=== PATIENT | male | born 1960 | race Caucasian/White ===

== ENCOUNTER 2023-10-22 19:10 | Inpatient (IN) | payer BC, SELFPAY ==
[2023-10-22] VITALS (9 sets, daily range): BP systolic 111–155; BP diastolic 55–119; BMI 30.8; BMI 31.0
--- NOTE | 2023-10-22 12:59 | ED.GENMED ---
History of Present Illness
General
Chief Complaint: Abdominal Symptoms
Time Seen by Provider: 10/22/23 12:47
History of Present Illness
History of Present Illness:
Patient presents to the emergency department with vomiting diarrhea, abdominal pain, fevers. Symptoms started on Friday after eating chicken. Notes that Friday into Friday he had copious amounts of vomiting and watery diarrhea. Denies any
bloody stools. Since then he endorses severe fatigue. Today he had a fever to 104. He denies any persistent diarrhea or vomiting but notes very poor appetite. Endorses bilateral lower abdominal
Phy Exam
Physical Exam
Physical Exam:
GENERAL APPEARANCE: NAD, well developed/ well nourished
EYES lids/conjunctiva normal
EARS/NOSE/THROAT Mucous membranes tacky, uvula midline without oral pharyngeal erythema, exudate or swelling
HEAD/NECK normocephalic atraumatic, neck is supple.
RESPIRATORY respiratory effort normal, speaks in full sentences, no accessory muscle use. Lungs clear to auscultation without rhonchi, wheezes, rales
CARDIAC Regular rate and rhythm, no edema.
ABDOMINAL abdomen is soft and nondistended. There is tenderness to palpation in bilateral lower quadrants. There is no rebound or guard
MUSCLES/EXTREMITIES No abnormal range of motion, no swelling.
SKIN Warm, pink and dry. No rashes
NEUROLOGICAL Speech is clear and appropriate. Normal level of consciousness. 5/5 strength in all extremities.
PSYCH Normal mood and affect. Judgement/competence is appropriate
Course
Orders/Labs/Results
Orders:
Orders
10/22/23 12:57
0.9% Sodium Chloride 1000 ml [Nss] 1,000 ml IV BOLUS
Morphine Sulfate 4 mg IV NOW STA
10/22/23 12:58
CT Abd/Pel (IV only)-DH only Urgent
Comment:
Reason For Exam: febrile, lower abdominal pain
10/22/23 13:16
CR Chest - 2 Views Urgent
Comment:
Reason For Exam: cough, fever
10/22/23 13:22
Complete Blood Count/With Diff Urgent
Comprehensive Metabolic Panel Urgent
Lactic Acid Urgent
Lipase Urgent
Blood Culture Urgent
HARLEY Source: Blood/Venous
Specimen Description:
10/22/23 15:38
Azithromycin 500 mg/250 ml [Zithromax Infusion] 500 mg in 250 ml IV NOW
CefTRIAXone [Rocephin] 1,000 mg IV NOW STA
10/22/23 15:43
Acetaminophen [Tylenol] 650 mg PO NOW STA
10/22/23 15:51
Urinalysis Reflex To Culture Urgent
Date Specimen was Collected: 10/22/23
Time Specimen was Collected: 15:50
Urine Microscopic Reflex Cult Urgent
Urine Culture Urgent
HARLEY Source: U
Specimen Description:
Date Specimen was Collected: 10/22/23
Time Specimen was Collected: 15:50
10/22/23 17:08
MetroNIDAZOLE 500 MG/100 ML [Flagyl 500 mg] 100 ml IV NOW
Abnormal Lab Results
10/22/23 10/22/23
13:22 15:51
RBC 4.28 L 10^6/uL
(4.70-6.10)
Hct 38.2 L %
(39.0-52.0)
MCH 31.8 H pg
(27.0-31.0)
Abs Immat Gran (auto) 0.1 H 10^3/uL
(0-0.05)
Absolute Neuts (auto) 6.7 H 10^3/uL
(1.4-6.5)
Absolute Lymphs (auto) 0.5 L 10^3/uL
(1.2-3.4)
Absolute Monos (auto) 1.1 H 10^3/uL
(0.1-0.6)
Immature Gran % 1.5 H %
(0-0.5)
Neutrophils % 79.5 H %
(42.2-75.2)
Lymphocytes % 5.6 L %
(20.5-51.1)
Monocytes % 12.6 H %
(1.7-9.3)
Total Bilirubin 1.6 H mg/dl
(0.2-1.3)
AST 79 H U/L
(17-59)
ALT 105 H U/L
(0-50)
Alkaline Phosphatase 153 H U/L
(38-126)
Urine Ketones 1+ A
(Negative)
Ur Occult Blood Reflex 1+ A
(Negative)
Urine Bilirubin 1+ A
(Negative)
Urine RBC 3-6 A /HPF
(0-2)
Urine Bacteria (Reflex) Many A
(Negative)
10/22/23 13:22
10/22/23 13:22
Vital Signs
Initial and Last Documented VS:
Initial Vital Signs
Temp Pulse Resp BP Pulse Ox
98.4 F 95 18 135/74 96
10/22/23 10:46 10/22/23 10:46 10/22/23 10:46 10/22/23 10:46 10/22/23 10:46
Last Documented Vital Signs
Temp Pulse Resp BP Pulse Ox
103.8 F H 95 18 111/55 89
10/22/23 15:47 10/22/23 10:46 10/22/23 10:46 10/22/23 18:00 10/22/23 15:00
ED Attending Note
ED Attending Note
ED Attending Note:
Patient is nontoxic-appearing but does have bilateral lower abdominal tenderness with recent fevers and diarrheal illness. Plan for labs, CT to rule out intra-abdominal infection. Patient unable to provide stool sample but will send stool cultures
if he is able to
Perforated diverticulitis noted on CT scan with free air present. No abscess. Colorectal surgeon on-call Dr. Calles consulted
Dr. Calles saw patient, recommends admission, NPO/IVF he will reassess in the AM for possible operative plans.
-
Portions of this chart may have been created with voice recognition software.� Occasional wrong word or��sound alike� substitutions may have occurred due to the inherent limitations of voice recognition software.
Discharge Plan
Departure
Patient Disposition: Admit
Date of Disposition: 10/22/23
Time of Disposition: 18:09
Admit to: Med/Surg
Admit to doctor: hospitalist
Presentation/result/management discussed w/ accepting MD/DO: Hospitalist
Discharge Problem:
Diverticulitis of colon with perforation
Prescriptions:
No Action
clobetasol 0.05 % Cream
1 applic TOPICAL HS
Theragen Tablet
1 tab PO DAILY
ibuprofen 200 mg Tablet
400 mg PO BIDPRN PRN (Reason: fever)
apple cider vinegar 500 mg Tablet
500 mg PO DAILY
fenofibrate 160 mg Tablet
160 mg PO DAILY
omega 7-uwr-whs-fish oil [Fish Oil] 1,000 mg (120 mg-180 mg) Capsule
3 cap PO DAILY
garlic tablet
1 tab PO DAILY
Referrals:
Rito Lynne MD [Family Provider] -
Interventions
Interventions:
*Risk Screen - Suicide Last Done: 10/22/23 10:46
*General Assessment Last Done: 10/22/23 10:46
*Neglect/Abuse Screening Last Done: 10/22/23 10:46
ED- Fall Risk Assessment Last Done: 10/22/23 12:59
*ED COVID-19 Vaccine History Last Done: 10/22/23 12:59
LF-Dclegv-Oxhfwpgity Assessment Last Done: 10/22/23 12:59
Discharge Date and Time
Print Language: KINYARWANDA
[2023-10-22] MEDS: NSS 1000 IV (13:26)
[2023-10-22] MEDS: MORPHINE SULFATE 4 MG IV (13:32)
[2023-10-22 13:41] LABS: % Basophils 0.4 % (0-2); % Eosinophils 0.4 % (0-6); % Immature Granulocytes 1.5 % (0-0.5); % Lymphocytes 5.6 % (20.5-51.1); % Monocytes 12.6 % (1.7-9.3); % Neutrophils 79.5 % (42.2-75.2); Absolute Immature Granulocytes 0.1 10^3/uL (0-0.05); Absolute Lymphocytes 0.5 10^3/uL (1.2-3.4); Absolute Monocytes 1.1 10^3/uL (0.1-0.6); Absolute Neutrophils 6.7 10^3/uL (1.4-6.5); Hematocrit 38.2 % (39.0-52.0); Hemoglobin 13.6 g/dL (13.0-18.0); Mean Corp Hgb Conc. 35.6 g/dL (33.0-37.0); Mean Corpuscular Hgb 31.8 pg (27.0-31.0); Mean Corpuscular Volume 89.3 fL (80.0-94.0); Mean Platelet Volume 9.4 fL (7.4-10.4); Nucleated Red Blood Cells % 0 % (-); Platelet Count 157 10^3/uL (130-400); Red Blood Cell Count 4.28 10^6/uL (4.70-6.10); Red Cell Dist. Width 12.5 % (11.5-14.5); White Blood Cell Count 8.4 10^3/uL (4.8-10.8)
[2023-10-22 14:03] LABS: ALT (SGPT) 105 U/L (0-50); AST (SGOT) 79 U/L (17-59); Albumin 3.9 g/dl (3.5-5.0); Alkaline Phosphatase 153 U/L (38-126); Blood Urea Nitrogen 17 mg/dl (9-20); Calcium 8.6 mg/dl (8.4-10.2); Carbon Dioxide 23 mmol/L (22-30); Chloride 105 mmol/L (98-107); Estimated Creatinine Clearance 106 ml/min; Glucose 96 mg/dl (70-99); Lipase 40 U/L (23-300); Potassium 3.9 mmol/L (3.5-5.1); Sodium 136 mmol/L (135-145); Total Bilirubin 1.6 mg/dl (0.2-1.3); Total Protein 6.5 g/dl (6.3-8.2); eGFR > 60.00
[2023-10-22 14:04] LABS: Lactic Acid 1.1 mmol/L (0.7-2.0)
[2023-10-22] MEDS: TYLENOL 650 MG PO ×2 (15:48→21:18)
[2023-10-22] MEDS: ROCEPHIN 1000 MG IV (15:49)
[2023-10-22] MEDS: ZITHROMAX INFUSION 250 IV (15:49)
[2023-10-22 16:13] LABS: Urine Albumin Negative (Neg - Trace); Urine Bilirubin 1+ (Negative); Urine Character Clear (Clear); Urine Color Yellow; Urine Glucose Negative (Negative); Urine Ketone 1+ (Negative); Urine Leukocyte Negative (Negative); Urine Nitrite Negative (Negative); Urine Occult Blood 1+ (Negative); Urine Urobilinogen Negative (Neg - 1+)
[2023-10-22 16:44] LABS: Urine Bacteria Many (Negative); Urine Mucus Many; Urine White Cell 0-2 /HPF (0-5)
[2023-10-22] MEDS: FLAGYL 500 MG 100 IV (17:56)
--- NOTE | 2023-10-22 18:06 | CON.CRS ---
Consultation
-
Reason for Consultation: diverticulitis
Medical History
-
Chief Complaint: abdominal pain
History of Present Illness:
Patient is a 63-year-old male who has had abdominal symptoms since this past Friday. He describes abdominal pain combined with nausea and diarrhea. He had a bout of emesis as well. The above symptoms have worsened with time. Therefore he came
in to the ER today. He noticed a fever this morning at home of almost 104 and this led him to come in. In the ER temperature 103.8 �F recorded. Vitals otherwise are reasonable. White count normal at 8.4 with a left shift. Electrolytes and
lactate are within normal limits. LFTs are a bit elevated. CT scan of the abdomen and pelvis was performed. The images and report were reviewed. This reveals acute sigmoid diverticulitis with associated perforation and a small amount of
extraluminal air. There is no abscess or ascites. On my own review it is essentially microperforation with a few flecks of air near the sigmoid and left lower quadrant. There is no some diaphragmatic free air. There is also mild hepatic
steatosis. There is no abnormal wall thickening or stones noted. Prior to colonoscopies, the patient admits to undergoing regular colonoscopies by [facility] in [place]. His last may have been 5 years ago. He does not
recall any findings. Family history negative for colorectal issues. He denies any prior attacks of diverticulitis.
Past Medical History
Past Medical History: Other (heart block)
Past Surgical History: Cardiac (pacer) and Other
Social History
Tobacco: Non-Smoker
Alcohol: Occasional
Personal:
Living: With Family
Employment: Employed
Family History
Family History: Other (negative for GI issues/colon cancer)
Allergies / Home Medications
Allergy/AdvReac Type Severity Reaction Status Date / Time
No Known Allergies Allergy Unverified 10/22/23 10:46
�Medication �Instructions �Recorded �Confirmed �Type
apple cider vinegar 500 mg tablet 500 mg PO DAILY 10/22/23 10/22/23 History
clobetasol 0.05 % topical cream 1 applic topical HS rash 10/22/23 10/22/23 History
fenofibrate 160 mg tablet 160 mg PO DAILY 10/22/23 10/22/23 History
garlic 1 tab PO DAILY 10/22/23 10/22/23 History
ibuprofen 200 mg tablet 400 mg PO BIDPRN PRN fever 10/22/23 10/22/23 History
omega 1-iat-vhq-fish oil 1,000 mg 3 cap PO DAILY 10/22/23 10/22/23 History
(120 mg-180 mg) capsule (Fish Oil)
therapeutic multivitamin 1 tab PO DAILY 10/22/23 10/22/23 History
Review of Systems
-
A 10 point review of systems was completed, and was negative except as per HPI.
Physical Exam
Vital Signs
Temp 103.8 F H 10/22/23 15:47
Pulse 95 10/22/23 10:46
Resp Rate 18 10/22/23 10:46
Blood pressure 111/55 10/22/23 18:00
SaO2 89 10/22/23 15:00
10/21/23 10/22/23 10/23/23
06:59 06:59 06:59
Actual Weight 94.5 kg
Body Mass Index (BMI) 30.8
Lab Results / Allergies
10/22/23 13:22
10/22/23 13:22
WBC 8.4 10^3/uL (4.8-10.8) 10/22/23 13:22
Hgb 13.6 g/dL (13.0-18.0) 10/22/23 13:22
Hct 38.2 % (39.0-52.0) L 10/22/23 13:22
Plt Count 157 10^3/uL (130-400) 10/22/23 13:22
Abs Immat Gran (auto) 0.1 10^3/uL (0-0.05) H 10/22/23 13:22
Neutrophils % 79.5 % (42.2-75.2) H 10/22/23 13:22
Allergy/AdvReac Type Severity Reaction Status Date / Time
No Known Allergies Allergy Unverified 10/22/23 10:46
Physical Exam
General: Well Developed
HEENT: Normocephalic
Respiratory: Clear
Cardiac: S1/S2
GI: Tender (lower quadrants without rebound or guarding)
Skin: Warm and Dry
Neuro: Awake, Alert and Oriented
Psych: Calm
Data Reviewed
-
CT Scan: Image Personally Visualized and interpreted, Report Reviewed by me, Discussed with Patient and Discussed with Family
Labs: Labs Reviewed by me, Discussed with Patient and Discussed with Family
Total Time Spent with Patient (in minutes): 40
Assessment / Plan
-
63 yo M with sigmoid diverticulitis (1st attack) with 'perforation'--localized microperforation radiographically. Febrile but vitals otherwise normal. Moderately tender inferiorly without perotinitis. Discussed option of trip to OR for likely
Nga's resection vs maximal medical measures. He opts for the latter. Will tentatively post him for the OR tomorrow am (?9 or 10 o'clock)and reassess in am. He understands that if he worsens or doesn't improve, surgery may be needed. All
questions answered.
--- NOTE | 2023-10-22 18:16 | W.PN.UPDATE ---
Update Note
Progress Note Update
I saw and examined the patient.
The CONCRETE FINISHING MACHINE OPERATOR or PA's note was reviewed and I agree with the note.
Comment:
63-year-old past medical history of hyperlipidemia comes in for vomiting, diarrhea, abdominal pain, fevers. Symptoms began Friday, noted to have vomiting, diarrhea within the next 24 hours. Cannot tolerate diet. Temperature noted to be 103.8,
Hemoglobin 8.6 elevated LFTs with abdominal pain, bili 1.6, AST 79, ALT 105, ALP 153. Abdominal x-ray with patchy opacity in the right perihilar left midlung, lower lobes and lingula with possible multifocal pneumonia. CT imaging with acute
diverticulitis in the sigmoid colon with associated perforation and small amount of extraluminal air. No evidence of abscess or ascites. Lactate 1.1. Otherwise blood pressure 111/55.
Plan: Diverticulitis�continue zosyn Colorectal surgery consulted for perforation. NPO. Follow-up cultures. IV fluids, LR bolus now, continuous LR at 100 cc/h. CT chest for now to evaluate ?infiltrates. Covid, and flu swab. Follow-up right
upper quadrant sono although LFT elevation most likely secondary to sepsis.
--- NOTE | 2023-10-22 18:52 | HPS.HSE ---
Family Physician
-
Family Physician: Rito Lynne
Chief Complaint
-
Abdominal Pain and Fever
History of Present Illness
Patient is a 59-year-old male past medical history of hypertriglyceridemia, and sick sinus syndrome s/p pacemaker who presents with fever and abdominal pain. Patient reports symptoms began last Friday evening where he developed significant lower
abdominal pain associated with vomiting and diarrhea. The following day he developed fever as high as 104 �F. He notes he was seen at a urgent care, and told he had food poisoning as he did note some questionable food intake prior to onset of
symptoms. Unfortunately symptoms persisted and he was brought to the emergency department for evaluation.
Medical History
Past Medical History
Past Medical History: Reports Other
Additional Past Medical History:
Hypertriglyceridemia
Sick Sinus Syndrome s/p Pacemaker
Obstructive Sleep Apnea
Past Surgical History: Reports None
Social History
Tobacco: Other (Patient reports chewing tobacco in the past, but not for past 20 years)
Alcohol: Occasional (Few glasses on Friday/Friday nights)
Family History
Family History: Not pertinent
Allergies / Home Medications
Allergies reflects when Allergies were last updated in [facility].
Home Medications with original date entered in [facility]
Allergy/Medication List:
Allergies
Allergy/AdvReac Type Severity Reaction Status Date / Time
No Known Allergies Allergy Unverified 10/22/23 10:46
Home Medications
apple cider vinegar 500 mg tablet 500 mg PO DAILY 10/22/23
clobetasol 0.05 % topical cream 1 applic topical HS rash 10/22/23
fenofibrate 160 mg tablet 160 mg PO DAILY 10/22/23
garlic 1 tab PO DAILY 10/22/23
ibuprofen 200 mg tablet 400 mg PO BIDPRN PRN fever 10/22/23
omega 4-spd-khm-fish oil 1,000 mg (120 mg-180 mg) capsule (Fish Oil) 3 cap PO DAILY 10/22/23
therapeutic multivitamin 1 tab PO DAILY 10/22/23
Review of Systems
-
A 12 point ROS was completed and negative except as noted: Yes
Constitutional: Reports Fever and Chills
Respiratory: Reports Cough; Denies Trouble Breathing
Cardiac: Denies Chest Pain or Palpitations
Abdomen/GI: Reports See HPI
Physical Exam
Vital Signs
Vital Signs
Temp Pulse Resp BP Pulse Ox
103.8 F H 95 18 111/55 89
10/22/23 15:47 10/22/23 10:46 10/22/23 10:46 10/22/23 18:00 10/22/23 15:00
Physical Exam
General: Comfortable and Conversant
HEENT: Anicteric and Other (Mucous membranes are slightly dry)
Respiratory: Clear and Non Labored Respirations
Cardiac: S1/S2 and Regular Rhythm; No Tachycardia
GI: Soft and Tender (Bilateral Lower Quadrants without rebound or guarding)
Rectal: Deferred by Provider
Musculoskeletal: No Clubbing, No Cyanosis and No Edema
Skin: Warm and Dry
Neuro: Awake, Alert, Oriented and Nonfocal/grossly intact
Laboratory Results
-
10/22/23 13:22
10/22/23 13:22
Laboratory Results
Lactic Acid 1.1 mmol/L (0.7-2.0) 10/22/23 13:22
Total Bilirubin 1.6 mg/dl (0.2-1.3) H 10/22/23 13:22
AST 79 U/L (17-59) H 10/22/23 13:22
ALT 105 U/L (0-50) H 10/22/23 13:22
Alkaline Phosphatase 153 U/L (38-126) H 10/22/23 13:22
Lipase 40 U/L (23-300) 10/22/23 13:22
Data Reviewed
-
CT Scan: Report Reviewed by me
Lab Data: Labs Reviewed by me
Impression/Plan
-
Diverticulitis with 'perforation'
-Consult Colorectal Surgery
-Continue NPO/IVFs
-Continue Zosyn
-Possible OR tomorrow
Abnormal CXR, possibly pneumonia vs atelectasis
-Check Check CT w/o contrast
-Check COVID and Influenza
-Encourage use of incentive spirometer
Elevated LFTs - Possibly related to shock liver vs fatty liver
-Check Hepatitis Panel
-Check Abd US
-Recheck LFTs in AM
Hypertriglyceridemia
-Hold fenofibrate while NPO
Obstructive Sleep Apnea
-Continue CPAP - Patient to use own machine
Sick Sinus Syndrome s/p Pacemaker
DVT proph: SCDs
Code Stats: Full Code
[2023-10-22 19:24] LABS: COVID-19 Antigen Negative (Negative)
--- NOTE | 2023-10-22 20:30 | PTCARENOTE ---
Pt arrived to 2S via stretcher from ED. Pt was able to ambulate from stretcher to bed. No complaints of pain. Temp of 100.8 ( see MAR) all other VSS. Head to toe assessment complete. IVF infusing. Bed locked and in lowest position. Call schwarz with
in reach.
[2023-10-22] MEDS: ZOSYN 50 IV (21:17)
[2023-10-22] MEDS: LR 1000 IV (21:25)
[2023-10-23] MEDS: LR 1000 IV ×3 (00:54→15:53)
[2023-10-23] MEDS: ZOSYN 50 IV ×4 (04:33→21:50)
[2023-10-23 06:18] LABS: Hematocrit 33.4 % (39.0-52.0); Hemoglobin 11.4 g/dL (13.0-18.0); Mean Corp Hgb Conc. 34.1 g/dL (33.0-37.0); Mean Corpuscular Hgb 31.3 pg (27.0-31.0); Mean Corpuscular Volume 91.8 fL (80.0-94.0); Mean Platelet Volume 10.5 fL (7.4-10.4); Platelet Count 128 10^3/uL (130-400); Red Blood Cell Count 3.64 10^6/uL (4.70-6.10); Red Cell Dist. Width 12.4 % (11.5-14.5); White Blood Cell Count 8.5 10^3/uL (4.8-10.8)
[2023-10-23 06:29] LABS: INR 1.12; PT 14.4 Sec (11.4-14.6)
[2023-10-23 06:44] LABS: ALT (SGPT) 70 U/L (0-50); AST (SGOT) 46 U/L (17-59); Albumin 2.9 g/dl (3.5-5.0); Alkaline Phosphatase 131 U/L (38-126); Blood Urea Nitrogen 15 mg/dl (9-20); Calcium 8.2 mg/dl (8.4-10.2); Carbon Dioxide 25 mmol/L (22-30); Chloride 105 mmol/L (98-107); Estimated Creatinine Clearance 94 ml/min; Glucose 87 mg/dl (70-99); Potassium 3.7 mmol/L (3.5-5.1); Sodium 136 mmol/L (135-145); Total Bilirubin 1.2 mg/dl (0.2-1.3); Total Protein 5.1 g/dl (6.3-8.2); eGFR > 60.00
[2023-10-23 07:59] VITALS: BP 119/66
--- NOTE | 2023-10-23 08:45 | W.PN.HOSP.TC ---
Today's Communication/Plan
-
Colorectal surgery- nonoperative management most likely is appropriate course - symptoms improving
Continue antibiotics
Repeat blood cultures
ID consulted
Trend LFTs
Assessment / Plan
Assessment / Plan
Physical Exam
General: Comfortable and Conversant
HEENT: Anicteric and Other (Mucous membranes are slightly dry)
Respiratory: Clear and Non Labored Respirations
Cardiac: S1/S2 and Regular Rhythm; No Tachycardia
GI: Soft and Tender (Bilateral Lower Quadrants without rebound or guarding)
Rectal: Deferred by Provider
Musculoskeletal: No Clubbing, No Cyanosis and No Edema
Skin: Warm and Dry
Neuro: Awake, Alert, Oriented and Nonfocal/grossly intact
Sepsis, POA
2/2 to Diverticulitis with micro perforation
2/2 to Bacteremia
-Colorectal Surgery - non operative management
-Continue NPO/IVFs; ice chips okay; less pain, tenderness, distension
-Continue Zosyn
-Repeat Blood cultures
-ID consulted
#Chronic granulomatosis disease
� Follow-up outpatient
Transaminitis
� Possibly secondary to sepsis versus fatty liver
� LFTs trending down
-Check Hepatitis Panel
-Recheck LFTs in AM
Hypertriglyceridemia
-Hold fenofibrate while NPO
Obstructive Sleep Apnea
-Continue CPAP - Patient to use own machine
Sick Sinus Syndrome s/p Pacemaker
DVT proph: SCDs
Code Stats: Full Code
Total time spent on today's encounter was 50 minutes which included time spent in counseling the patient/family regarding diagnosis and treatment plan as listed above, goals of care, and symptom management. Case was discussed with nursing staff,
specialists, and care coordinators/case management. All labs and imaging personally reviewed by me. Remainder the time spent in detailed review of previous records, lab data, imaging, and other medical provider documentation.
Anticipated Discharge: > 48 hours
Subjective/Interval History
-
Date of Service: October 23, 2023
Afebrile, blood cultures positive
Objective Data
-
Labs:
Laboratory Results
10/23/23
05:29
WBC 8.5
Hgb 11.4 L
Hct 33.4 L
Plt Count 128 L
PT 14.4
INR 1.12
Sodium 136
Potassium 3.7
Chloride 105
Carbon Dioxide 25
BUN 15
Creatinine 0.9
Glucose 87
Calcium 8.2 L
Total Bilirubin 1.2
AST 46
ALT 70 H
Alkaline Phosphatase 131 H
Vital Signs:
Vital Signs
Temp Pulse Resp BP Pulse Ox
98.7 F 67 17 119/66 95
10/23/23 07:59 10/23/23 07:59 10/23/23 07:59 10/23/23 07:59 10/23/23 07:59
I&O
10/22/23 10/23/23 10/24/23
06:59 06:59 06:59
Intake Total 1500 / 1500
Balance 1500 / 1500
Review of Systems
-
History Source: Patient
All other systems: Not reviewed unless documented
Data Reviewed
-
CT Scan: Image personally visualized and interpreted and Report Reviewed by me
Labs: Labs Reviewed by me
[2023-10-23] MEDS: TYLENOL 650 MG PO ×3 (09:01→21:57)
--- NOTE | 2023-10-23 11:38 | W.PN.CRS1 ---
Today's Communication / Plan
-
Ice chips/continue current care.
Assessment/Plan
-
Diverticulitis with microperforation.
1. less pain and tenderness. WBC normal with L shift. Afebrile now and vital fine. Discussed situation with patient and . Rediscussed options and decided on continued medical measures, which is reasonable.
2. ice chips ok.
3. continue antibiotics.
4. LFTs slightly better. CTC yesterday and RUQ US yesterday reviewed---no pneumonia or obvious gallbladder issues noted. I believe the LFT issue is secondary to the diverticulitis.
Subjective Data
Subjective Data
Date of Service: October 23, 2023
Less pain.
No nausea or emesis.
Objective Data
-
Vital Signs
Temp Pulse Resp BP Pulse Ox
98.7 F 67 17 119/66 95
10/23/23 07:59 10/23/23 07:59 10/23/23 07:59 10/23/23 07:59 10/23/23 07:59
Intake & Output
10/22/23 10/23/23 10/24/23
06:59 06:59 06:59
Intake Total 1500 / 1500
Balance 1500 / 1500
Intake:
IV fluids (Total) 1400 / 1400
IV piggybacks 100 / 100
Other:
Number of approximated MODERATE 1
amounts of urine
Lab Results
10/23/23 05:29
10/23/23 05:29
Physical Exam
-
General: No Acute Distress
Chest: Clear
Cardiovascular: Regular Rate & Rhythm
Abdomen: Non Distended, Tender (lower abdominal) and Guarding (voluntary)
[2023-10-23 15:10] VITALS: BP 141/60
--- NOTE | 2023-10-23 16:24 | CON.ID ---
Consultation
-
Date/Time Consultation Requested: 10/23/2023 0841
Date/Time Consultation Performed: 1540
Requesting Provider: Dr. Powell
Performing Provider: Dr. Hull
Reason for Consultation: Diverticulitis
Chief Complaint / Past History
History of Present Illness
Kenneth Reyes is a 63-year-old man being evaluated at the request of Dr. Powell regarding diverticulitis and possible microperforation. History is obtained from chart review, along with patient interview. Additional history was obtained from
the patient as and family who are at the bedside.
The patient reports that approximately 5 days prior to admission he had eaten out with his and had a salad. He notes that later that evening and through the night he developed nausea and vomiting. He additionally developed diarrhea. The
following day he developed fever up to 104 degrees. He was seen by urgent care and was diagnosed with food poisoning, but fevers, abdominal pain and diarrhea persisted and ultimately presented to the emergency room for further evaluation. CT
imaging revealed the presence of diverticulitis. Blood cultures obtained at admission are now positive for E. coli.
At the present time he reports feeling slightly improved. He has been evaluated by Colorectal Surgery and is currently n.p.o. Abdominal pain persists, but is stable. He has very little appetite at present.
Past History
Additional Past Medical History:
Dyslipidemia
Sick sinus syndrome
KAYLIN
Additional Past Surgical History:
PPM placement
Allergy History:
No Known Allergies Allergy (Unverified 10/22/23 10:46)
Medications Reviewed: Yes
Current Antibiotics:
Zosyn 3.375 g IV every 6 hours
Social History
Tobacco: Non-Smoker
Alcohol: Occasional
Drug: None
Personal:
Living: With Family
Employment: Employed
Family History
Family History: Not Pertinent
Review of Systems
Vital Signs
Temp Pulse Resp BP Pulse Ox
98.5 F 64 17 141/60 93
10/23/23 15:10 10/23/23 15:10 10/23/23 15:10 10/23/23 15:10 10/23/23 15:10
Physical Exam
Physical Exam
Constitutional: No Acute Distress, Comfortable and Non-toxic
Eyes: Pupils Equal, Pupils Round, No Conjunctival Hemorrhage and Sclera Anicteric
Oral: No Thrush and No Ulcers
Cardiovascular: Regular Rate and S1/S2; Negative S3/S4
Pulmonary: Clear; Negative Wheezes, Rales or Rhonchi
Gastrointestinal: Soft, Tender (minimal), Non Distended, Normal Bowel Sounds, No Rebound and No Guarding
Genito-Urinary: Negative Burch
Extremities: Negative Edema, Cyanosis or Erythema
Skin: Warm and Dry; Negative Rash or Jaundice
Neurological: Awake, Alert and Oriented
Psychological: Calm
.
Lab / Diagnostic Study Results
10/23/23 05:29
10/23/23 05:29
Abs Immat Gran (auto) 0.1 10^3/uL (0-0.05) H 10/22/23 13:22
Absolute Neuts (auto) 6.7 10^3/uL (1.4-6.5) H 10/22/23 13:22
Absolute Lymphs (auto) 0.5 10^3/uL (1.2-3.4) L 10/22/23 13:22
Absolute Monos (auto) 1.1 10^3/uL (0.1-0.6) H 10/22/23 13:22
Absolute Basos (auto) 0.0 10^3/uL (0-0.2) 10/22/23 13:22
Immature Gran % 1.5 % (0-0.5) H 10/22/23 13:22
Neutrophils % 79.5 % (42.2-75.2) H 10/22/23 13:22
Lymphocytes % 5.6 % (20.5-51.1) L 10/22/23 13:22
Monocytes % 12.6 % (1.7-9.3) H 10/22/23 13:22
Eosinophils % 0.4 % (0-6) 10/22/23 13:22
Basophils % 0.4 % (0-2) 10/22/23 13:22
PT 14.4 Sec (11.4-14.6) 10/23/23 05:29
INR 1.12 10/23/23 05:29
Lactic Acid 1.1 mmol/L (0.7-2.0) 10/22/23 13:22
Microbiology Results
Micro:
10/22/23 15:51 Urine Culture - Final
Urine NO GROWTH
10/22/23 13:22 Blood Culture - Preliminary
Blood/Venous Escherichia coli
Gram Stain - Preliminary
10/23/23 09:04 Blood Culture - Pending
Blood/Venous
10/22/23 18:57 Influenza Types A & B (THA) - Final
Nasal Swab Negative for Influenza A & B, NAAT
Negative results must be combined with clinical observations
and patient history.
Nucleic Acid Amplification test (NAAT)performed on the
artaculous platform.
Imaging:
10/22/2023 CT abdomen/pelvis: Acute diverticulitis in the sigmoid colon with an associated perforation and small amount of extraluminal air. No CT evidence for pericolonic abscess or ascites. There is mild hepatomegaly and mild to moderate diffuse
hepatic steatosis. There is moderate splenomegaly containing small calcified granulomas. There is minimal bilateral pleural effusions with adjacent mild subsegmental atelectasis in the lower lobes of the lungs.
Assessment / Plan
Acute sigmoid diverticulitis
Diverticular microperforation
E. coli bacteremia
Normal white count with left shift
Transaminitis
Hx dyslipidemia
Hx sick sinus syndrome with PPM in place
KAYLIN
Recommendations:
Continue with Zosyn for the present.
Await further data regarding isolate susceptibilities to guide further antimicrobial selection and potential de-escalation.
Monitor for clinical improvement.
Trend white count and temperature curve.
[2023-10-23 19:15] LABS: Hepatitis B Surface Antigen Negative (Negative)
[2023-10-23 19:33] LABS: Hepatitis B Core Ab, Total Negative (Negative); Hepatitis B Surface Antibody Negative; Hepatitis C Antibody Negative (Negative)
[2023-10-23 19:37] LABS: Hepatitis A Antibody, Total Positive (Negative)
[2023-10-23 20:20] LABS: Hepatitis A IgM Antibody Negative (Negative)
[2023-10-23 23:00] VITALS: BP 147/77
[2023-10-24] MEDS: LR 1000 IV (02:10)
[2023-10-24] MEDS: ZOSYN 50 IV ×4 (04:39→21:00)
[2023-10-24 05:49] LABS: Hematocrit 34.6 % (39.0-52.0); Hemoglobin 12.2 g/dL (13.0-18.0); Mean Corp Hgb Conc. 35.3 g/dL (33.0-37.0); Mean Corpuscular Hgb 31.5 pg (27.0-31.0); Mean Corpuscular Volume 89.4 fL (80.0-94.0); Mean Platelet Volume 9.8 fL (7.4-10.4); Platelet Count 147 10^3/uL (130-400); Red Blood Cell Count 3.87 10^6/uL (4.70-6.10); Red Cell Dist. Width 12.2 % (11.5-14.5); White Blood Cell Count 10.2 10^3/uL (4.8-10.8)
[2023-10-24 06:20] LABS: ALT (SGPT) 60 U/L (0-50); AST (SGOT) 44 U/L (17-59); Albumin 3.1 g/dl (3.5-5.0); Alkaline Phosphatase 150 U/L (38-126); Blood Urea Nitrogen 15 mg/dl (9-20); Calcium 8.3 mg/dl (8.4-10.2); Carbon Dioxide 20 mmol/L (22-30); Chloride 108 mmol/L (98-107); Estimated Creatinine Clearance 121 ml/min; Glucose 81 mg/dl (70-99); Potassium 3.5 mmol/L (3.5-5.1); Sodium 137 mmol/L (135-145); Total Bilirubin 0.9 mg/dl (0.2-1.3); Total Protein 5.4 g/dl (6.3-8.2); eGFR > 60.00
[2023-10-24 07:36] VITALS: BP 134/64
--- NOTE | 2023-10-24 07:42 | W.PN.HOSP.TC ---
Today's Communication/Plan
-
CLD - ADAT
Abx
F/u cultures
Assessment / Plan
Assessment / Plan
Physical Exam
General: Comfortable and Conversant
HEENT: Anicteric and Other (Mucous membranes are slightly dry)
Respiratory: Clear and Non Labored Respirations
Cardiac: S1/S2 and Regular Rhythm; No Tachycardia
GI: Soft and Tender (Bilateral Lower Quadrants without rebound or guarding)
Rectal: Deferred by Provider
Musculoskeletal: No Clubbing, No Cyanosis and No Edema
Skin: Warm and Dry
Neuro: Awake, Alert, Oriented and Nonfocal/grossly intact
Sepsis, POA
2/2 to Diverticulitis with micro perforation
2/2 to Bacteremia
-Colorectal Surgery - non operative management
-less pain, tenderness, distension - Trial CLD
-Continue Zosyn
-Repeat Blood cultures
-ID consulted
#Chronic granulomatosis disease
� Follow-up outpatient
Transaminitis
� Possibly secondary to sepsis versus fatty liver
� LFTs trend
- Hepatitis Panel - no evidence of acute disease; hep b antibody pos
-Recheck LFTs in AM
Hypertriglyceridemia
-Hold fenofibrate while NPO
Obstructive Sleep Apnea
-Continue CPAP - Patient to use own machine
Sick Sinus Syndrome s/p Pacemaker
DVT proph: SCDs
Code Stats: Full Code
Anticipated Discharge: 24 - 48 hours
Subjective/Interval History
-
Date of Service: October 24, 2023
no acute events, mild diarrhea - mucous
Objective Data
-
Labs:
Laboratory Results
10/24/23
05:36
WBC 10.2
Hgb 12.2 L
Hct 34.6 L
Plt Count 147
Sodium 137
Potassium 3.5
Chloride 108 H
Carbon Dioxide 20 L
BUN 15
Creatinine 0.7
Glucose 81
Calcium 8.3 L
Total Bilirubin 0.9
AST 44
ALT 60 H
Alkaline Phosphatase 150 H
Vital Signs:
Vital Signs
Temp Pulse Resp BP Pulse Ox
98.4 F 63 20 134/64 94
10/24/23 07:36 10/24/23 07:36 10/24/23 07:36 10/24/23 07:36 10/24/23 07:36
I&O
10/23/23 10/24/23 10/25/23
06:59 06:59 06:59
Intake Total 1500 / 1500 2500 / 2500
Balance 1500 / 1500 2500 / 2500
Review of Systems
-
History Source: Patient
All other systems: Not reviewed unless documented
Data Reviewed
-
CT Scan: Image personally visualized and interpreted and Report Reviewed by me
Labs: Labs Reviewed by me
--- NOTE | 2023-10-24 09:15 | W.PN.CRS1 ---
Today's Communication / Plan
-
clears
Assessment/Plan
-
Diverticulitis with microperforation.
1. WBC still normal and afebrile.
2. Advance diet to clears.
3. continue antibiotics.
4. No plans for OR at this time.
Subjective Data
Subjective Data
Date of Service: October 24, 2023
Patient states he is feeling a little bit better today. He has loose stools. He is still sore in his lower abdominal area. He denies nausea or vomiting.
Objective Data
-
Vital Signs
Temp Pulse Resp BP Pulse Ox
98.4 F 63 20 134/64 94
10/24/23 07:36 10/24/23 07:36 10/24/23 07:36 10/24/23 07:36 10/24/23 07:36
Intake & Output
10/23/23 10/24/23 10/25/23
06:59 06:59 06:59
Intake Total 1500 / 1500 2500 / 2500
Balance 1500 / 1500 2500 / 2500
Intake:
IV fluids (Total) 1400 / 1400 2300 / 2300
IV piggybacks 100 / 100 200 / 200
Other:
Number of approximated MODERATE 1 2
amounts of urine
Lab Results
10/24/23 05:36
10/24/23 05:36
Physical Exam
-
General: No Acute Distress and AOx3
Abdomen: Soft, Non Distended and Tender (suprapubic/LLQ - mild)
Skin: Warm and Dry
--- NOTE | 2023-10-24 10:15 | PTCARENOTE ---
Per Dr. Powell pt ok to shower.
[2023-10-24] MEDS: TYLENOL 650 MG PO (10:35)
--- NOTE | 2023-10-24 11:54 | W.PN.ID1 ---
Date of Service
Date of Service: October 24, 2023
Today's Communication
Continue abx.
Assessment / Plan
Acute sigmoid diverticulitis
Diverticular microperforation
E. coli bacteremia
Normal white count with left shift
Transaminitis
Hx dyslipidemia
Hx sick sinus syndrome with PPM in place
KAYLIN
Recommendations:
Continue with Zosyn for the present.
Await further data regarding blood isolate susceptibilities to guide further antimicrobial selection and potential de-escalation.
Repeat blood cultures are pending.
Monitor for clinical improvement.
Trend white count and temperature curve.
Chief Complaint
-: Other (Diverticulitis)
Subjective / Review of Systems
Review of Systems: No Fever, No Chills and Abdominal Pain (mild)
Vital Signs / Physical Exam
Vital Signs
Vital Signs
Temp Pulse Resp BP Pulse Ox
98.4 F 63 20 134/64 94
10/24/23 07:36 10/24/23 07:36 10/24/23 07:36 10/24/23 07:36 10/24/23 07:36
Physical Exam
Constitutional: No Acute Distress, Comfortable and Non-toxic
Eyes: Sclera Anicteric
Cardiovascular: S1/S2; Negative S3/S4
Pulmonary: Clear and Non Labored
Gastrointestinal: Soft, Tender (lower abdomen; mild), Non Distended and Normal Bowel Sounds
Skin: Negative Rash or Jaundice
Neurological: Awake and Alert
Psychological: Calm
Objective Data
Lab Data
Lab Results
10/24/23 05:36
10/24/23 05:36
PT 14.4 Sec (11.4-14.6) 10/23/23 05:29
INR 1.12 10/23/23 05:29
Estimated Creat Clear 121 ml/min 10/24/23 05:36
Lactic Acid 1.1 mmol/L (0.7-2.0) 10/22/23 13:22
Total Bilirubin 0.9 mg/dl (0.2-1.3) 10/24/23 05:36
AST 44 U/L (17-59) 10/24/23 05:36
ALT 60 U/L (0-50) H 10/24/23 05:36
Alkaline Phosphatase 150 U/L (38-126) H 10/24/23 05:36
Most recent labs reviewed.
Micro Results:
10/24/23 11:30 Salmonella/Shigella Culture - Pending
Feces/Stool Campylobacter Culture - Pending
Shiga Toxin Test - Pending
10/24/23 09:52 Blood Culture - Pending
Blood/Venous
10/23/23 09:04 Blood Culture - Preliminary
Blood/Venous No Growth in 24 hours- Final report to follow
10/22/23 13:22 Blood Culture - Preliminary
Blood/Venous Escherichia coli
Gram Stain - Final
10/22/23 15:51 Urine Culture - Final
Urine NO GROWTH
10/22/23 18:57 Influenza Types A & B (THA) - Final
Nasal Swab Negative for Influenza A & B, NAAT
Negative results must be combined with clinical observations
and patient history.
Nucleic Acid Amplification test (NAAT)performed on the
[employer] platform.
Imaging:
10/22/2023 CT abdomen/pelvis: Acute diverticulitis in the sigmoid colon with an associated perforation and small amount of extraluminal air. No CT evidence for pericolonic abscess or ascites. There is mild hepatomegaly and mild to moderate diffuse
hepatic steatosis. There is moderate splenomegaly containing small calcified granulomas. There is minimal bilateral pleural effusions with adjacent mild subsegmental atelectasis in the lower lobes of the lungs.
[2023-10-24] MEDS: LR IV (15:32)
[2023-10-24 15:34] VITALS: BP 163/77
--- NOTE | 2023-10-24 17:42 | CM ---
Patient seen at bedside. Patient lives in 2 story home with CPap as only DME. Patient lives with . Patient PCP is Dr. Solo Mitchell and he uses the [facility] in [place]. Patient s/p surgery and on clear diet today. Patient plan is home with no
needs. CM will continue to follow for discharge planning needs.
Plan; home with no needs; watch for any IV antibiotic needs.
[2023-10-24 18:15] VITALS: BP 159/81
[2023-10-24] MEDS: HEPARIN 5000 UNITS SC (20:59)
[2023-10-24 23:00] VITALS: BP 149/77
[2023-10-25] MEDS: ZOSYN 50 IV ×4 (03:27→21:36)
[2023-10-25] MEDS: LR IV (05:16)
[2023-10-25 07:34] VITALS: BP 146/75
[2023-10-25] MEDS: HEPARIN 5000 UNITS SC ×2 (07:34→20:40)
[2023-10-25 08:27] LABS: Hematocrit 36.8 % (39.0-52.0); Hemoglobin 13.1 g/dL (13.0-18.0); Mean Corp Hgb Conc. 35.6 g/dL (33.0-37.0); Mean Corpuscular Hgb 31.4 pg (27.0-31.0); Mean Corpuscular Volume 88.2 fL (80.0-94.0); Mean Platelet Volume 9.8 fL (7.4-10.4); Platelet Count 232 10^3/uL (130-400); Red Blood Cell Count 4.17 10^6/uL (4.70-6.10); Red Cell Dist. Width 12.4 % (11.5-14.5); White Blood Cell Count 11.5 10^3/uL (4.8-10.8)
[2023-10-25 08:56] LABS: ALT (SGPT) 64 U/L (0-50); AST (SGOT) 67 U/L (17-59); Albumin 3.7 g/dl (3.5-5.0); Alkaline Phosphatase 150 U/L (38-126); Blood Urea Nitrogen 11 mg/dl (9-20); Carbon Dioxide 26 mmol/L (22-30); Chloride 105 mmol/L (98-107); Estimated Creatinine Clearance 121 ml/min; Glucose 94 mg/dl (70-99); Potassium 4.3 mmol/L (3.5-5.1); Sodium 138 mmol/L (135-145); Total Bilirubin 0.8 mg/dl (0.2-1.3); Total Protein 6.2 g/dl (6.3-8.2); eGFR > 60.00
--- NOTE | 2023-10-25 10:08 | W.PN.CRS1 ---
Addendum entered and electronically signed by Eduar Rene MD 10/25/23 13:48:
Patient seen and examined with INPATIENT SERVICES RN. Agree with documented progress note.
Feeling better each day. First day that he has not felt abdominal pain with movement or palpation reported by patient.
Positive flatus and he has been moving his bowels
AFVSS
WBC 11, slightly elevated for first time
ABD: Soft, slight tenderness on palpation left lower quadrant but essentially very minimal to none. No rebound, no rigidity, no guarding.
Assessment/plan: Sigmoid diverticulitis complicated by contained microperforation and bacteremia
Clinical improvement and stability with resolved localized peritonitis
Repeat WBC tomorrow
Begin dietary advancement from full liquids to low residue as tolerated
Zosyn
Original Note:
Today's Communication / Plan
-
Advance diet as tolerated
Continue abx
Assessment/Plan
-
63 yo male with diverticulitis with microperforation and bacteremia
Last fever was 7/3, AFVSS
Blood cultures from admission growing +ecoli x1 set
Mild leukocytosis today. Mild reactive transaminitis.
Exam improving
--Advance to FLD for lunch, ok for LRD if no pain with full liquids
--Continue IV abx. ID following
--Follow labs/exams
--Analagesics prn
Subjective Data
Subjective Data
Date of Service: October 25, 2023
Patient seen and examined at bedside with Dr. Rene. Ambulating in room, dressing in clothes from home. Notes his pain is much better than previous. Moving his bowels frequently, loose and small amounts. Denies n/v. Tolerating diet but notes
whenever he takes in oral intake, he will have a BM shortly thereafter.
Objective Data
-
Vital Signs
Temp Pulse Resp BP Pulse Ox
98.5 F 56 18 146/75 96
10/25/23 07:34 10/25/23 07:34 10/25/23 07:34 10/25/23 07:34 10/25/23 07:34
Intake & Output
10/24/23 10/25/23 10/26/23
06:59 06:59 06:59
Intake Total 2500 / 2500 2580 / 2580
Balance 2500 / 2500 2580 / 2580
Intake:
Oral fluids 1680 / 1680
IV fluids (Total) 2300 / 2300 700 / 700
IV piggybacks 200 / 200 200 / 200
Other:
Number of approximated MODERATE 2 3
amounts of urine
Number of approximated LARGE 2
amounts of urine
Lab Results
10/25/23 08:04
10/25/23 08:04
Physical Exam
-
General: No Acute Distress and AOx3
Abdomen: Soft, Non Distended and Non Tender
Skin: Warm and Dry
--- NOTE | 2023-10-25 10:26 | W.PN.ID1 ---
Date of Service
Date of Service: October 25, 2023
Assessment / Plan
Acute sigmoid diverticulitis
Diverticular microperforation
E. coli bacteremia
Normal white count with left shift
Transaminitis
Hx dyslipidemia
Hx sick sinus syndrome with PPM in place
KAYLIN
Recommendations:
Continue with Zosyn for the present. Hopefully for eventual transition to oral augmentin if leukocytosis improving
Repeat blood cultures are no growth to date
Monitor for clinical improvement.
Trend white count and temperature curve.
Chief Complaint
-: Other (Diverticulitis)
Subjective / Review of Systems
no further fevers
bp stable
minimal leukocytosis today
plt normal
cr 0.7
e coli is sensitive to reported drugs
stool cultures were sent - in progress
granulomas in the spleen - calcified
10/21 CT scan: ACUTE DIVERTICULITIS in the SIGMOID COLON with an associated perforation and small amount of extraluminal air. No CT evidence for pericolonic abscess or ascites.
Vital Signs / Physical Exam
Vital Signs
Vital Signs
Temp Pulse Resp BP Pulse Ox
98.5 F 56 18 146/75 96
10/25/23 07:34 10/25/23 07:34 10/25/23 07:34 10/25/23 07:34 10/25/23 07:34
Objective Data
Lab Data
Lab Results
10/25/23 08:04
10/25/23 08:04
PT 14.4 Sec (11.4-14.6) 10/23/23 05:29
INR 1.12 10/23/23 05:29
Estimated Creat Clear 121 ml/min 10/25/23 08:04
Lactic Acid 1.1 mmol/L (0.7-2.0) 10/22/23 13:22
Total Bilirubin 0.8 mg/dl (0.2-1.3) 10/25/23 08:04
AST 67 U/L (17-59) H 10/25/23 08:04
ALT 64 U/L (0-50) H 10/25/23 08:04
Alkaline Phosphatase 150 U/L (38-126) H 10/25/23 08:04
Most recent labs reviewed.
Blood Culture Final 10/25/23-801
Positive for Escherichia coli by [employer]
Nucleic Acid Methodology.
Organism 1 Escherichia coli
1. Escherichia coli
M.I.C. RX
--------- ---
Amoxicillin/Potas. Clavulanate <=8/4 S
Ampicillin <=8 S
Ampicillin/Sulbactam <=8/4 S
Cefazolin <=2 S
Ertapenem <=0.5 S
Ciprofloxacin <=0.25 S
Gentamicin <=4 S
Levofloxacin <=0.5 S
Meropenem <=1 S
Piperacillin/Tazobactam <=16 S
Tobramycin <=4 S
Trimethoprim/Sulfamethoxazole <=2/38 S
Micro Results:
10/24/23 11:30 Salmonella/Shigella Culture - Preliminary
Feces/Stool Culture in Progress
Campylobacter Culture - Preliminary
Culture in Progress
Shiga Toxin Test - Pending
10/24/23 09:52 Blood Culture - Preliminary
Blood/Venous No Growth in 24 hours- Final report to follow
10/23/23 09:04 Blood Culture - Preliminary
Blood/Venous No Growth in 48 hours- Final report to follow
10/22/23 13:22 Blood Culture - Final
Blood/Venous Escherichia coli
Gram Stain - Final
10/22/23 15:51 Urine Culture - Final
Urine NO GROWTH
10/22/23 18:57 Influenza Types A & B (THA) - Final
Nasal Swab Negative for Influenza A & B, NAAT
Negative results must be combined with clinical observations
and patient history.
Nucleic Acid Amplification test (NAAT)performed on the
[employer] platform.
Imaging:
10/22/2023 CT abdomen/pelvis: Acute diverticulitis in the sigmoid colon with an associated perforation and small amount of extraluminal air. No CT evidence for pericolonic abscess or ascites. There is mild hepatomegaly and mild to moderate diffuse
hepatic steatosis. There is moderate splenomegaly containing small calcified granulomas. There is minimal bilateral pleural effusions with adjacent mild subsegmental atelectasis in the lower lobes of the lungs.
--- NOTE | 2023-10-25 12:34 | W.PN.HOSP.TC ---
Today's Communication/Plan
-
Advance to full liquid diet for lunch, low residue diet for dinner if tolerating
Switch to p.o. antibiotics as per ID
Assessment / Plan
Assessment / Plan
Physical Exam
General: Comfortable and Conversant
HEENT: Anicteric and Other (Mucous membranes are slightly dry)
Respiratory: Clear and Non Labored Respirations
Cardiac: S1/S2 and Regular Rhythm; No Tachycardia
GI: Soft and Tender (Bilateral Lower Quadrants without rebound or guarding)
Rectal: Deferred by Provider
Musculoskeletal: No Clubbing, No Cyanosis and No Edema
Skin: Warm and Dry
Neuro: Awake, Alert, Oriented and Nonfocal/grossly intact
Sepsis, POA
2/2 to Diverticulitis with micro perforation
2/2 to Bacteremia, Ecoli
-Colorectal Surgery - non operative management
-less pain, tenderness, distension - FLD, can advance to lrd tonight if tolerating
-Continue Zosyn - switch to PO today
-Repeat Blood cultures: NGTD
-ID consulted
#Chronic granulomatosis disease
� Follow-up outpatient
Transaminitis
� Possibly secondary to sepsis versus fatty liver
� LFTs trend
- Hepatitis Panel - no evidence of acute disease; hep b antibody pos
-Recheck LFTs in AM
Hypertriglyceridemia
-Hold fenofibrate while NPO
Obstructive Sleep Apnea
-Continue CPAP - Patient to use own machine
Sick Sinus Syndrome s/p Pacemaker
DVT proph: SCDs
Code Stats: Full Code
Anticipated Discharge: Within 24 hours
Subjective/Interval History
-
Date of Service: October 25, 2023
Patient's symptoms improved, passing gas, bowel movements
Objective Data
-
Labs:
Laboratory Results
10/25/23
08:04
WBC 11.5 H
Hgb 13.1
Hct 36.8 L
Plt Count 232 D
Sodium 138
Potassium 4.3
Chloride 105
Carbon Dioxide 26
BUN 11
Creatinine 0.7
Glucose 94
Calcium 9.0
Total Bilirubin 0.8
AST 67 H
ALT 64 H
Alkaline Phosphatase 150 H
Vital Signs:
Vital Signs
Temp Pulse Resp BP Pulse Ox
98.5 F 56 18 146/75 96
10/25/23 07:34 10/25/23 07:34 10/25/23 07:34 10/25/23 07:34 10/25/23 07:34
I&O
10/24/23 10/25/23 10/26/23
06:59 06:59 06:59
Intake Total 2500 / 2500 2580 / 2580
Balance 2500 / 2500 2580 / 2580
Review of Systems
-
History Source: Patient
All other systems: Not reviewed unless documented
Data Reviewed
-
CT Scan: Image personally visualized and interpreted and Report Reviewed by me
Labs: Labs Reviewed by me
[2023-10-25 15:25] VITALS: BP 142/75
[2023-10-25] MEDS: FLUSH (NSS) 2 FLUSH IV (16:25)
[2023-10-25 23:00] VITALS: BP 138/76
[2023-10-26] MEDS: TYLENOL 650 MG PO (02:33)
[2023-10-26] MEDS: ZOSYN 50 IV ×2 (03:21→09:26)
[2023-10-26 07:10] VITALS: BP 152/84
[2023-10-26 07:39] LABS: Hematocrit 34.4 % (39.0-52.0); Hemoglobin 12.6 g/dL (13.0-18.0); Mean Corp Hgb Conc. 36.6 g/dL (33.0-37.0); Mean Corpuscular Volume 87.3 fL (80.0-94.0); Mean Platelet Volume 9.8 fL (7.4-10.4); Platelet Count 276 10^3/uL (130-400); Red Blood Cell Count 3.94 10^6/uL (4.70-6.10); Red Cell Dist. Width 12.2 % (11.5-14.5); White Blood Cell Count 9.8 10^3/uL (4.8-10.8)
[2023-10-26 07:45] LABS: ALT (SGPT) 58 U/L (0-50); AST (SGOT) 50 U/L (17-59); Albumin 3.2 g/dl (3.5-5.0); Alkaline Phosphatase 114 U/L (38-126); Blood Urea Nitrogen 9 mg/dl (9-20); Calcium 8.6 mg/dl (8.4-10.2); Carbon Dioxide 24 mmol/L (22-30); Chloride 108 mmol/L (98-107); Estimated Creatinine Clearance 106 ml/min; Glucose 97 mg/dl (70-99); Potassium 4.1 mmol/L (3.5-5.1); Sodium 138 mmol/L (135-145); Total Bilirubin 0.7 mg/dl (0.2-1.3); Total Protein 5.6 g/dl (6.3-8.2); eGFR > 60.00
[2023-10-26] MEDS: HEPARIN 5000 UNITS SC (09:26)
--- NOTE | 2023-10-26 09:58 | W.PN.CRS1 ---
Addendum entered and electronically signed by Eduar Rene MD 10/26/23 10:23:
Patient seen and examined with surgical JUICE TESTER. Agree with documented progress note.
Patient's symptoms essentially resolved. No lingering abdominal pain or discomfort.
He has tolerated a low residue diet without any exacerbation of symptoms, no abdominal cramping bloating or distention.
Passing flatus and some loose bowel movements.
AFVSS
WBC normal again 9.8
ABD: Soft, nondistended, and essentially no tenderness on palpation in any quadrant or suprapubic
A/P: 63-year-old male with resolving sigmoid diverticulitis complicated by local contained microperforation and bacteremia
Stable for discharge from surgical standpoint
Infectious disease following for antibiotic recommendations -consider Augmentin for an additional 10-day course to complete 2 weeks but defer to ID
Outpatient follow-up with colorectal surgery/Dr. Calles in 3 to 4 weeks
Counseled to maintain low residue diet for 3 to 4 weeks
Original Note:
Today's Communication / Plan
-
Dipso planning
Assessment/Plan
-
63 yo male with diverticulitis with microperforation and bacteremia
Last fever was 7/3, AFVSS
Blood cultures from admission growing +ecoli x1 set
No further leukocytosis. Transaminitis nearly resolved
Clinically much improved
--Continue LRD
--Continue abx. ID following
--Follow labs/exams
--Analagesics prn
Clear from CRS standpoint for discharge on PO abx and LRD
Subjective Data
Subjective Data
Date of Service: October 26, 2023
Patient seen and examined at bedside with Dr. Rene. Denies pain. Tolerating diet advancement without return of symptoms. Diarrhea has slowed down significantly, passing flatus.
Objective Data
-
Vital Signs
Temp Pulse Resp BP Pulse Ox
98.1 F 61 17 152/84 96
10/26/23 07:10 10/26/23 07:10 10/26/23 07:10 10/26/23 07:10 10/26/23 07:10
Intake & Output
10/25/23 10/26/23 10/27/23
06:59 06:59 06:59
Intake Total 2580 / 2580 1640 / 1640
Balance 2580 / 2580 1640 / 1640
Intake:
Oral fluids 1680 / 1680 1440 / 1440
IV fluids (Total) 700 / 700
IV piggybacks 200 / 200 200 / 200
Other:
Number of approximated MODERATE 3 3
amounts of urine
Number of approximated LARGE 2 1
amounts of urine
Lab Results
10/26/23 06:51
10/26/23 06:51
Physical Exam
-
General: No Acute Distress and AOx3
Abdomen: Soft, Non Distended and Non Tender
Skin: Warm and Dry
--- NOTE | 2023-10-26 10:58 | W.PN.HOSP.TC ---
Addendum entered and electronically signed by Grady Powell MD 10/26/23 15:24:
[id number]
Original Note:
Today's Communication/Plan
-
� Continue low residue diet for 3 to 4 weeks
� Follow-up colorectal surgery in 3 to 4 weeks
� Switch from Zosyn�continue Augmentin 875 mg twice daily for additional 10 days to complete 14 day course
F/u PCP, GI, CRS outpatient
Assessment / Plan
Assessment / Plan
Physical Exam
General: Comfortable and Conversant
HEENT: Anicteric and Other (Mucous membranes are slightly dry)
Respiratory: Clear and Non Labored Respirations
Cardiac: S1/S2 and Regular Rhythm; No Tachycardia
GI: Soft and Tender (Bilateral Lower Quadrants without rebound or guarding)
Rectal: Deferred by Provider
Musculoskeletal: No Clubbing, No Cyanosis and No Edema
Skin: Warm and Dry
Neuro: Awake, Alert, Oriented and Nonfocal/grossly intact
Sepsis, POA
2/2 to Diverticulitis with micro perforation
2/2 to Bacteremia, Ecoli
-Colorectal Surgery - non operative management
-less pain, tenderness, distension -resolved
� Continue low residue diet for 3 to 4 weeks
� Follow-up colorectal surgery in 3 to 4 weeks
� Switch from Zosyn�continue Augmentin 875 mg twice daily for additional 10 days to complete 14 day course
-Repeat Blood cultures: NGTD
-ID consulted
#Chronic granulomatosis disease
� Follow-up outpatient
Transaminitis
� Possibly secondary to sepsis versus fatty liver
� LFTs trend
- Hepatitis Panel - no evidence of acute disease; hep b antibody pos
-improved
f/u outpatient
Hypertriglyceridemia
fenofibrate
Obstructive Sleep Apnea
-Continue CPAP - Patient to use own machine
Sick Sinus Syndrome s/p Pacemaker
Code Stats: Full Code
More than 30 minutes spent in discharge including
Final examination of the patient
Summarizing hospital stay
Instructions for continuing care to all relevant caregivers
Preparation of discharge records, prescriptions, and referral forms
Total time spent (35 in minutes):
Anticipated Discharge: Today
Subjective/Interval History
-
Date of Service: October 26, 2023
No acute events overnight, tolerating low residue diet, passing flatus and some loose bowel movements
Objective Data
-
Labs:
Laboratory Results
10/26/23
06:51
WBC 9.8
Hgb 12.6 L
Hct 34.4 L
Plt Count 276
Sodium 138
Potassium 4.1
Chloride 108 H
Carbon Dioxide 24
BUN 9
Creatinine 0.8
Glucose 97
Calcium 8.6
Total Bilirubin 0.7
AST 50
ALT 58 H
Alkaline Phosphatase 114
Vital Signs:
Vital Signs
Temp Pulse Resp BP Pulse Ox
98.1 F 61 17 152/84 96
10/26/23 07:10 10/26/23 07:10 10/26/23 07:10 10/26/23 07:10 10/26/23 07:10
I&O
10/25/23 10/26/23 10/27/23
06:59 06:59 06:59
Intake Total 2580 / 2580 1640 / 1640 50 / 50
Balance 2580 / 2580 1640 / 1640 50 / 50
Review of Systems
-
History Source: Patient
All other systems: Not reviewed unless documented
Data Reviewed
-
CT Scan: Image personally visualized and interpreted and Report Reviewed by me
Labs: Labs Reviewed by me
--- NOTE | 2023-10-26 11:02 | W.DS.TRANS ---
DC Summary - [employer]
-
Discharge Instructions:
Discharge Diagnosis/Procedures Sepsis, POA
2/2 to Diverticulitis with micro perforation
2/2 to Bacteremia, Ecoli
Diet Low Fiber
Additional Diets Low fiber diet for the next 3-4 weeks
Activity As tolerated
Blood Work cbc, cmp with pcp in 1 week
Instructions: Low Fiber Diet
Stand-Alone Forms:
Changes to Home Medications: Yes
Discharge Medications:
DC Medications w/original date entered in [employer]
clobetasol 0.05 % topical cream 1 applic topical HS rash 10/22/23
fenofibrate 160 mg tablet 160 mg PO DAILY High Cholesterol 10/22/23
garlic 1 tab PO DAILY Supplement 10/22/23
omega 5-juv-[id number]-fish oil 1,000 mg (120 mg-180 mg) capsule (Fish Oil) 3 cap PO DAILY High Cholesterol 10/22/23
therapeutic multivitamin 1 tab PO DAILY Supplement 10/22/23
amoxicillin 875 mg-potassium clavulanate 125 mg tablet 1 tab PO BID 10 days #20 tabs 10/26/23
Home Medication Changes
amoxicillin 875 mg-potassium clavulanate 125 mg tablet 1 tab PO BID 10 days #20 tabs 10/26/23
Pending Results: No
[2023-10-26 12:29] VITALS: BP 124/73
== END 2023-10-26 14:11 | disposition home or self-care (01) | DRG 871 ==
LOC: 2 SOUTH 19:10
PROVIDERS: Emergency Medicine; Physician Assistant Medical; ADMITTING PHYSICIAN Internal Medicine; CONSULT PHYSICIAN Internal Medicine Infectious Disease; CONSULT PHYSICIAN Surgery; EMERGENCY PHYSICIAN Emergency Medicine; FAMILY PHYSICIAN Family Medicine
DX: A41.51 Sepsis due to Escherichia coli [E. coli] (principal); K65.9 Peritonitis, unspecified; K57.20 Diverticulitis of large intestine with perforation and abscess without bleeding; K76.0 Fatty (change of) liver, not elsewhere classified; I49.5 Sick sinus syndrome; D71 Functional disorders of polymorphonuclear neutrophils; E78.1 Pure hyperglyceridemia; G47.33 Obstructive sleep apnea (adult) (pediatric); Z79.899 Other long term (current) drug therapy; Z95.0 Presence of cardiac pacemaker; Z87.891 Personal history of nicotine dependence
CPT/HCPCS: 71046; 71250; 74177; 76700; 80053; 81003; 81015; 83605; 83690; 85025; 85027; 85610; 86704; 86706; 86708; 86709; 86803; 86850; 86900; 86901; 87040; 87045; 87046; 87086; 87149; 87186; 87205; 87340; 87427; 87502; 87811; 96361; 96365; 96367; 96375; 99285; Q9967

== ENCOUNTER 2024-03-15 15:35 | Inpatient (IN) | payer BC, SELFPAY ==
[2024-03-15] VITALS (9 sets, daily range): BP systolic 96–159; BP diastolic 66–91; BMI 31.0
[2024-03-15 11:57] LABS: % Eosinophils 0.5 % (0-6); % Immature Granulocytes 0.5 % (0-0.5); % Lymphocytes 24.4 % (20.5-51.1); % Monocytes 10.2 % (1.7-9.3); % Neutrophils 63.4 % (42.2-75.2); Absolute Basophils 0.1 10^3/uL (0-0.2); Absolute Lymphocytes 1.4 10^3/uL (1.2-3.4); Absolute Monocytes 0.6 10^3/uL (0.1-0.6); Absolute Neutrophils 3.7 10^3/uL (1.4-6.5); Hematocrit 41.6 % (39.0-52.0); Hemoglobin 14.8 g/dL (13.0-18.0); Mean Corp Hgb Conc. 35.6 g/dL (33.0-37.0); Mean Corpuscular Hgb 32.4 pg (27.0-31.0); Mean Platelet Volume 9.2 fL (7.4-10.4); Nucleated Red Blood Cells % 0 % (-); Platelet Count 267 10^3/uL (130-400); Red Blood Cell Count 4.57 10^6/uL (4.70-6.10); Red Cell Dist. Width 12.4 % (11.5-14.5); White Blood Cell Count 5.9 10^3/uL (4.8-10.8)
[2024-03-15 12:01] LABS: ALT (SGPT) 27 U/L (0-50); AST (SGOT) 37 U/L (17-59); Albumin 4.4 g/dl (3.5-5.0); Alkaline Phosphatase 48 U/L (38-126); Blood Urea Nitrogen 21 mg/dl (9-20); Calcium 9.6 mg/dl (8.4-10.2); Carbon Dioxide 26 mmol/L (22-30); Chloride 104 mmol/L (98-107); Estimated Creatinine Clearance 106 ml/min; Glucose 101 mg/dl (70-99); Potassium 4.5 mmol/L (3.5-5.1); Sodium 140 mmol/L (135-145); Total Bilirubin 0.9 mg/dl (0.2-1.3); Total Protein 6.7 g/dl (6.3-8.2); eGFR > 60.00
--- NOTE | 2024-03-15 12:12 | ED.GENMED ---
History of Present Illness
General
Chief Complaint: Chest Pain
Source: patient
Exam Limitations: none
Time Seen by Provider: 03/15/24 11:46
History of Present Illness
History of Present Illness:
63-year-old male presents in referral from cardiology office with intermittent chest discomfort over the past 1.5 months. This occasionally at rest worse with exertion. He has a history of hypertension obstructive sleep apnea and sick sinus
syndrome. He has a pacemaker. He is not anticoagulated. No recent travel or surgery. No leg swelling or calf pain. He does note occasional shortness of breath with this. No other complaints at this time. He was given aspirin and nitroglycerin
at the office and notes improvement of his symptoms.
Phy Exam
Physical Exam
Physical Exam:
General: Well-appearing male no acute respiratory distress
HEENT: Normocephalic atraumatic
Heart: Regular rate and rhythm no murmur
Lungs: Clear no wheeze
Extremities: No cyanosis or edema
Skin is warm no rash
Scores
Heart Score for Chest Pain Patients
STEMI patient?: No
History: Moderately Suspicious
ECG: Normal
Age: >45 - <65 years
Risk Factors: 1 or 2 Risk Factors
Troponin: </= Normal Limit
Heart Score for Chest Pain Patients: 3
Heart Score Risk: 2.5% MACE over next 6 weeks
Course
Orders/Labs/Results
Orders:
Orders
03/15/24 11:04
Electrocardiogram (*1) Urgent
Reason for Study: Chest Pain
EKG- Treatment ONCE
03/15/24 11:27
Cardiac Monitoring- Treatment ONCE
IV Insert/Care/Rem.- Treatment PRN
CR Chest - 2 Views Urgent
Comment:
Reason For Exam: respiratory distress
O2 Therapy [RESP] Urgent
Titrate/Wean O2 to maintain O2 sat greater than (%): 93
Special Instructions: TO MAINTAIN CONTINUOUS O2 SATS >/= 93%
Pulse Ox/cont/shift [RESP] Urgent
Quantity: 1
Special Instructions: continuous pulse ox
03/15/24 11:35
Complete Blood Count/With Diff Urgent
Comprehensive Metabolic Panel Urgent
Troponin I Urgent
03/15/24 12:13
Add On- LAB Urgent
Tests Added?: bnp
Abnormal Lab Results
03/15/24
11:35
RBC 4.57 L 10^6/uL
(4.70-6.10)
MCH 32.4 H pg
(27.0-31.0)
Monocytes % 10.2 H %
(1.7-9.3)
BUN 21 H mg/dl
(9-20)
Glucose 101 H mg/dl
(70-99)
03/15/24 11:35
03/15/24 11:35
Vital Signs
Initial and Last Documented VS:
Initial Vital Signs
Temp Pulse Resp BP Pulse Ox
98.7 F 92 16 159/81 98
03/15/24 11:12 03/15/24 11:12 03/15/24 11:12 03/15/24 11:12 03/15/24 11:12
Last Documented Vital Signs
Temp Pulse Resp BP Pulse Ox
98 F 54 19 129/76 96
03/15/24 11:13 03/15/24 12:45 03/15/24 12:45 03/15/24 11:13 03/15/24 12:45
MDM/Problems Addressed
Differential Diagnosis Includes:
Chest discomfort intermittent atrial. Consider ACS versus angina. No risk factors for PE. Was sent in by cardiology for further evaluation. EKG ordered through triage reviewed and shows sinus bradycardia without any ischemic changes. Chest
x-ray pending troponin and BNP ordered.
*Critical Care Note
Total Time (30-74mins, 75-104mins- exclusive of procedures): Not Applicable
Update Note
Update Note:
. Initial workup shows clear x-ray. Troponin undetectable. Discussed with cardiology. They will see and admit the patient for possible unstable angina. Currently pain-free
ED Attending Note
-
Portions of this chart may have been created with voice recognition software.� Occasional wrong word or��sound alike� substitutions may have occurred due to the inherent limitations of voice recognition software.
Discharge Plan
Departure
Patient Disposition: Admit
Date of Disposition: 03/15/24
Time of Disposition: 12:56
Admit to: Telemetry
Presentation/result/management discussed w/ accepting MD/DO: Bridgett
Discharge Problem:
Chest pain
Prescriptions:
No Action
clobetasol 0.05 % Cream
1 applic TOPICAL HS
therapeutic multivitamin Tablet
1 tab PO DAILY
fenofibrate 160 mg Tablet
160 mg PO DAILY
omega 7-yle-iwb-fish oil [Fish Oil] 1,000 mg (120 mg-180 mg) Capsule
3 cap PO DAILY
garlic tablet
1 tab PO DAILY
amoxicillin-pot clavulanate 875-125 mg tablet
1 tab PO BID 10 Days Qty: 20 0RF
Interventions
Interventions:
*Risk Screen - Suicide Last Done: 03/15/24 11:15
*Neglect/Abuse Screening Last Done: 03/15/24 11:15
*ED COVID-19 Vaccine History Last Done: 03/15/24 11:15
ED- Cardiac Assessment Last Done: 03/15/24 11:39
Discharge Date and Time
Print Language: KAZAKH
[2024-03-15 12:13] LABS: Troponin I < 0.012 ng/ml
[2024-03-15 13:54] LABS: NT-proBNP 36.3 pg/ml
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
[2024-03-15 16:28] LABS: APTT 28.6 Sec (23.4-35.0)
[2024-03-15] MEDS: HEPARIN 25000 UNITS/250 ML IV (16:46)
[2024-03-15] MEDS: LOPRESSOR PO (17:30)
[2024-03-15] MEDS: LIPITOR 40 MG PO (17:34)
--- NOTE | 2024-03-15 18:37 | PTCARENOTE ---
received patient from ED on stretcher. AAOx3. SB on monitor. HR 50s. 98% RA. lungs clear. pulses palpable. +bs. BRP. Heparin gtt infusing through R AC PIV at ordered rate. trp drawn and sent.
[2024-03-15 19:35] LABS: Troponin I < 0.012 ng/ml
[2024-03-15] MEDS: LOPRESSOR 25 MG PO (23:10)
[2024-03-15 23:18] LABS: APTT 58.3 Sec (23.4-35.0)
[2024-03-15 23:31] LABS: Troponin I < 0.012 ng/ml
[2024-03-16] VITALS (10 sets, daily range): BP systolic 99–116; BP diastolic 62–79
--- NOTE | 2024-03-16 00:43 | PTCARENOTE ---
Assumed care of the pt @1900 AAOx3 SR 60 on the monitor. VSS BP 113/75 sat 97% on RA. PTT results 58.3 Hep gtt increased from 1450 to 1650 units/HR. NPO for Cath today Trop neg x3
[2024-03-16] MEDS: LOPRESSOR 25 MG PO (05:51)
[2024-03-16 05:57] LABS: Hematocrit 39.9 % (39.0-52.0); Hemoglobin 13.8 g/dL (13.0-18.0); Mean Corp Hgb Conc. 34.6 g/dL (33.0-37.0); Mean Corpuscular Hgb 32.2 pg (27.0-31.0); Mean Platelet Volume 9.3 fL (7.4-10.4); Platelet Count 225 10^3/uL (130-400); Red Blood Cell Count 4.29 10^6/uL (4.70-6.10); Red Cell Dist. Width 12.6 % (11.5-14.5); White Blood Cell Count 5.3 10^3/uL (4.8-10.8)
[2024-03-16 07:15] LABS: Troponin I < 0.012 ng/ml
[2024-03-16 07:53] LABS: Blood Urea Nitrogen 16 mg/dl (9-20); Calcium 8.8 mg/dl (8.4-10.2); Carbon Dioxide 22 mmol/L (22-30); Chloride 108 mmol/L (98-107); Estimated Creatinine Clearance 106 ml/min; Glucose 112 mg/dl (70-99); HDL Cholesterol 51 mg/dl; LDL Cholesterol, Calculated 64 mg/dl; Sodium 140 mmol/L (135-145); Total Cholesterol 164 mg/dl (50-199); Triglyceride 247 mg/dl (10-149); Very Low Density Lipoprotein 49 mg/dl (0-30); eGFR > 60.00
[2024-03-16] MEDS: LOW STRENGTH ASPIRIN 81 MG PO (07:58)
[2024-03-16] MEDS: THERAGRAN 1 TABLET PO (07:58)
[2024-03-16] MEDS: TRICOR 145 MG PO (07:58)
--- NOTE | 2024-03-16 10:06 | ITS.CL.CATH ---
[facility] - Catheterization
Cardiac Catheterization
Procedure Report:
LEFT HEART CATHETERIZATION
Date of Procedure: March 16, 2024
Referring: Ruth King MD, [facility], [facility]
PROCEDURES:
1. Left heart catheterization, coronary angiogram.
2. Ultrasound-guided access
INDICATION: Concern for unstable angina
ACCESS: Right radial artery, 6 Mohawk sheath, under ultrasound guidance
HEMODYNAMICS : (mmHg)
AO (s/d) : 109/74
LV (s/d) : 114/7
LVEDP : 13
CORONARY FINDINGS
DOMINANCE: Right
LEFT MAIN: The left main artery is a large-caliber vessel which gives rise to the left anterior descending artery and left circumflex artery. There is minimal luminal irregularities.
LEFT ANTERIOR DESCENDING: The left anterior descending artery is a medium caliber vessel which gives rise to 2 major diagonal branch as it courses to the anterior interventricular groove towards the apex. Proximal LAD has smooth tubular 40%
stenosis at the level of the takeoff of the major diagonal branch. Distal LAD is a very small caliber vessel and has an eccentric 60 to 70% stenosis which is a sub-2 mm vessel and not a PCI target.
CIRCUMFLEX: The left circumflex artery is a medium caliber vessel which gives rise to 1 major obtuse marginal branch. There is minimal luminal irregularities.
RIGHT CORONARY ARTERY: The right coronary artery is a large-caliber, dominant vessel which gives rise to the right posterior descending artery and the right posterolateral system. There is minimal luminal irregularities.
SEDATION: 35 minutes of procedural sedation was utilized. An independent medical research associate was present to assist with and help manage the patient's level of consciousness and physiologic status.
RADIATION SUMMARY: Fluoro Time (min): 7.1, Dose (mGy): 548.6, DAP (Gy.cm2) : 34.3
Closure Device: Vascular band over right radial artery, 10 cc of air.
CONCLUSIONS
1. No obstructive coronary artery disease
2. Distal LAD is a very small caliber vessel and has an eccentric 60 to 70% stenosis which is a sub-2 mm vessel and not a PCI target.
3. Normal LVEDP.
RECOMMENDATIONS
1. Wean radial band per protocol.
2. Optimization of cardiovascular risk factors.
3. Medical therapy for small vessel CAD in distal LAD.
Ruth King MD, FACC, [facility]
--- NOTE | 2024-03-16 13:01 | CM ---
Chart reviewed. Patient is independent of ADLS, lives with his in a [address], total of 3 DONAVON in front and 2 DONAVON in back, 0 DME. Plan is for the patient to return home. CM to follow
--- NOTE | 2024-03-16 15:46 | PTCARENOTE ---
R radial site is c/d/i. No bleeding/hematoma noted. Currently has no c/o pain/discomfort at this time. VSS. Currently in bed; call karishma w/in reach.
--- NOTE | 2024-03-16 16:48 | W.DS.TRANS ---
DC Summary - Web Search Evaluator
-
Discharge Instructions:
Discharge Diagnosis/Procedures Cardiac cath
Diet Low Cholesterol
Activity Other activity
Driving Restrictions No driving for 24 hours
Bathing Restrictions OK to Shower
Instructions:
Stand-Alone Forms: DC Instructions- Cath/EP Lab
Changes to Home Medications: Yes
Discharge Medications:
DC Medications w/original date entered in [facility]
fenofibrate 160 mg tablet 160 mg PO DAILY High Cholesterol 10/22/23
garlic 200 mg tablet 200 mg PO DAILY Supplement ##0 10/22/23
omega 2-mxf-kjm-fish oil 1,000 mg (120 mg-180 mg) capsule (Fish Oil) 3 cap PO DAILY High Cholesterol 10/22/23
therapeutic multivitamin 1 tab PO DAILY Supplement 10/22/23
aspirin 81 mg chewable tablet 81 mg PO DAILY #30 tabs 03/16/24
atorvastatin 20 mg tablet 20 mg PO QPM High cholesterol #30 tabs 03/16/24
metoprolol succinate 25 mg tablet,extended release 24 hr 25 mg PO DAILY Blood pressure #30 tabs 03/16/24
Home Medication Changes
New to Toprol XL, atorvastatin and aspirin
Pending Results: No
--- NOTE | 2024-03-16 17:35 | PTCARENOTE ---
IV and tele removed. Discharge instructions reviewed w/ pt. Verbalizes understanding. Escorted via wheelchair and staff assist. Discharged to home.
== END 2024-03-16 17:28 | disposition home or self-care (01) | DRG 287 ==
LOC: IVU 15:35
PROVIDERS: Physician Assistant; Physician Assistant Medical; ADMITTING PHYSICIAN Internal Medicine Interventional Cardiology; EMERGENCY PHYSICIAN Emergency Medicine; FAMILY PHYSICIAN Family Medicine
PROC: 4A023N7 Measurement of Cardiac Sampling and Pressure, Left Heart, Percutaneous Approach (ICD-10-PCS; 2024-03-16)
PROC: B211YZZ Fluoroscopy of Multiple Coronary Arteries using Other Contrast (ICD-10-PCS; 2024-03-16)
DX: I25.110 Atherosclerotic heart disease of native coronary artery with unstable angina pectoris (principal); I10 Essential (primary) hypertension; G47.33 Obstructive sleep apnea (adult) (pediatric); I49.5 Sick sinus syndrome; Z95.0 Presence of cardiac pacemaker; E78.5 Hyperlipidemia, unspecified
CPT/HCPCS: 71046; 80048; 80053; 80061; 83735; 83880; 84484; 85025; 85027; 85730; 93005; 93306; 93458; 99152; 99153; 99285; C1894; Q9967